=== PATIENT | male | born 2000 | race Caucasian/White ===

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

== ENCOUNTER 2020-12-26 15:49 | Emergency (ER) | payer SELFPAY ==
[~2020-12-26] VITALS: Ht 180.3 cm; Wt 94.8 kg
--- NOTE | 2020-12-26 16:30 | EKG ---
[address] [address] Test Date: 2020-12-26 Test Time: 15:57:45 Pat Name: SUSANA MILLER Department: Room: Gender: M [place] Superintendent: DEMETRIO : 2000 Requested By: KJ MYRICK Order Number: [id number] Reading MD: Chao Basilio Measurements Intervals [place] Rate: 100 P: 36 NM: 124 QRS: -2 QRSD: 78 T: 21 QT: 306 QTc: 397 Interpretive Statements SINUS RHYTHM LEFTWARD AXIS Electronically Signed On 01-01-2021 13:04:15 CDT by Chao Basilio
--- NOTE | 2020-12-26 16:31 | PHYS DOC ---
General Adult EDM: Chief Complaint: CHEST PAIN HPI: HPI: 20-year-old male presents with left-sided chest pain and left arm tingling. The patient states he has had problems a week in the left chest. It is gotten worse over the last few days. It is intermittent and he has not noticed a pattern. It is worse with deep breathing. For the last 2 days the chest pain has been constant but intensity increases and decreases. It is a 6 out of 10 pressure. When it is more intense he gets a tingling feeling in his arm and elbow. He denies fever or chills. He smokes 1 or 2 cigarettes every couple weeks. He denies drug use he has not smoked marijuana in a few weeks. Denies vaping or al cohol. No history of cardiac problems. (KJ MYRICK DO) Review of Systems: Review of Systems: Constitutional: Denies fever or chills Eyes: Denies change in visual acuity HENT: Denies nasal congestion or sore throat Respiratory: Denies cough or shortness of breath Cardiovascular: Denies chest pain or edema GI: Denies abdominal pain, nausea, vomiting, bloody stools or diarrhea : Denies dysuria Musculoskeletal: Denies back pain or joint pain Integument: Denies rash Neurologic: Denies headache, focal weakness or sensory changes Endocrine: Denies polyuria or polydipsia Lymphatic: Denies swollen glands Psychiatric: Denies depression or anxiety (KJ MYRICK DO) Physical Exam: PE: Constitutional: Well developed, well nourished, no acute distress, non-toxic appearance. [] HENT: Normocephalic, atraumatic, bilateral external ears normal, oropharynx moist, no oral exudates, nose normal. [] Eyes: PERRLA, EOMI, conjunctiva normal, no discharge. [] Neck: Normal range of motion, no tenderness, supple, no stridor. [] Cardiovascular:Heart rate regular rhythm, no murmur [] Lungs & Thorax: Bilateral breath sounds clear to auscultation [] Abdomen: Bowel sounds normal, soft, no tenderness, no masses, no pulsatile masses. [] Skin: Warm, dry, no erythema, no rash. [] Back: No tenderness, no CVA tenderness. [] Extremities: No tenderness, no cyanosis, no clubbing, ROM intact, no edema. [] Neurologic: Alert and oriented X 3, normal motor function, normal sensory function, no focal deficits noted. [] Psychologic: Affect normal, judgement normal, mood normal. [] (KJ MYRICK DO) Current Patient Data: Labs: Laboratory Tests Test 12/26/20 17:01 White Blood Count 8.3 x10^3/uL Red Blood Count 4.81 x10^6/uL Hemoglobin 13.8 g/dL Hematocrit 41.4 % Mean Corpuscular Volume 86 fL Mean Corpuscular Hemoglobin 29 pg Mean Corpuscular Hemoglobin Concent 33 g/dL Red Cell Distribution Width 13.4 % Platelet Count 205 x10^3/uL Neutrophils (%) (Auto) 64 % Lymphocytes (%) (Auto) 21 % Monocytes (%) (Auto) 12 % Eosinophils (%) (Auto) 2 % Basophils (%) (Auto) 1 % Neutrophils # (Auto) 5.4 x10^3uL Lymphocytes # (Auto) 1.7 x10^3/uL Monocytes # (Auto) 1.0 x10^3/uL Eosinophils # (Auto) 0.2 x10^3/uL Basophils # (Auto) 0.0 x10^3/uL Sodium Level 139 mmol/L Potassium Level 4.1 mmol/L Chloride Level 103 mmol/L Carbon Dioxide Level 30 mmol/L Anion Gap 6 Blood Urea Nitrogen 8 mg/dL Creatinine 1.0 mg/dL Estimated GFR (Cockcroft-Gault) 94.3 BUN/Creatinine Ratio 8 Glucose Level 85 mg/dL Calcium Level 9.2 mg/dL Total Bilirubin 0.3 mg/dL Aspartate Amino Transf (AST/SGOT) 18 U/L Alanine Aminotransferase (ALT/SGPT) 28 U/L Alkaline Phosphatase 124 U/L Troponin I Quantitative < 0.017 ng/mL Total Protein 6.6 g/dL Albumin 4.0 g/dL Albumin/Globulin Ratio 1.5 Vital Signs: Vital Signs Date Time Temp Pulse Resp B/P (MAP) Pulse Ox O2 Delivery O2 Flow Rate FiO2 12/26/20 16:23 98.5 98 17 130/79 (96) 99 Room Air Vital Signs Date Time Temp Pulse Resp B/P (MAP) Pulse Ox O2 Delivery O2 Flow Rate FiO2 12/26/20 16:23 98.5 98 17 130/79 (96) 99 Room Air (ROSARIO BYNUM DO) EKG: EKG: Sinus rhythm, rate 100, leftward axis, no ST elevation or depression. [] (KJ MYRICK DO) Radiology/Procedures: Radiology/Procedures: [] Impressions: XR CHEST 1V History: Chest pain Comparison: None. Technique: Portable AP radiograph of the chest. Findings: Low lung volumes. Possible left basilar opacities. No pleural effusion or pneumothorax. Cardiomediastinal silhouette and pulmonary vasculature are within normal limits. Osseous structures and soft tissues are unremarkable. Impression: 1. Low lung volumes with possible left basilar atelectasis. Electronically signed by: Wallace Castrejon MD (12/26/2020 4:56 PM) [id number] DICTATED AND SIGNED BY: WALLACE CASTREJON MD DATE: 12/26/201654 CC: KJ MYRICK DO; KALYAN GUTIÉRREZ PA ~MTH0 0 (KJ MYRICK DO) Radiology/Procedures: XR CHEST 1V History: Chest pain Comparison: None. Technique: Portable AP radiograph of the chest. Findings: Low lung volumes. Possible left basilar opacities. No pleural effusion or pneumothorax. Cardiomediastinal silhouette and pulmonary vasculature are within normal limits. Osseous structures and soft tissues are unremarkable. Impression: 1. Low lung volumes with possible left basilar atelectasis. Electronically signed by: Wallace Castrejon MD (12/26/2020 4:56 PM) [id number] (ROSARIO BYNUM DO) Heart Score: C/O Chest Pain: Yes HEART Score for Chest Pain: HEART Score for Chest Pain Response (Comments) Value History Slighlty/Non-Suspicious 0 ECG Normal 0 Age < 45 0 Risk Factors 1 or 2 Risk Factors 1 Troponin < Normal Limit 0 Total 1 Risk Factors: Risk Factors: DM, Current or recent (<one month) smoker, HTN, HLP, family history of CAD, obesity. Risk Scores: Score 0 - 3: 2.5% MACE over next 6 weeks - Discharge Home Score 4 - 6: 20.3% MACE over next 6 weeks - Admit for Clinical Observation Score 7 - 10: 72.7% MACE over next 6 weeks - Early Invasive Strategies (KJ MYRICK DO) C/O Chest Pain: Yes HEART Score for Chest Pain: HEART Score for Chest Pain Response (Comments) Value History Slighlty/Non-Suspicious 0 ECG Normal 0 Age < 45 0 Risk Factors No Risk Factors 0 Troponin < Normal Limit 0 Total 0 (ROSARIO BYNUM DO) Course & Med Decision Making: Course & Med Decision Making Pertinent Labs and Imaging studies reviewed. (See chart for details) The patient's EKG is unremarkable. His chest x-ray is negative for acute findings. Patient's labs urinalysis are pending. I am signing patient out to Dr. Bynum at 1800. [] (KJ MYRICK DO) Course & Med Decision Making ABCs unremarkable HPI, physical exam and comprehensive ER work-up nonconcerning for any emergent or surgical issues. I disclosed this might be an acute presentation of more concerning pathology but given week long symptoms, likely atypical chest pain PCP follow-up advised for further diagnostic work-up and intervention as indica mg. Strict return precautions discussed and understood by patient prior to departure (ROSARIO BYNUM DO) Dragon Disclaimer: Dragon Disclaimer: This electronic medical record was generated, in whole or in part, using a voice recognition dictation system. (KJ MYRICK DO) Departure Departure: Impression: Primary Impression: Chest pain, unspecified Disposition: 01 HOME / SELF CARE / HOMELESS Condition: STABLE Referrals: KALYAN GUTIÉRREZ (PCP) Additional Instructions: You were seen for chest pain. Your workup did not show any acute abnormalities today, but does not indicate that you do not have underlying cardiovascular disease. You do need to follow up with your primary doctor and potentially a commercial sales manager for further evaluation and treatment. You should return to the ED if you develop worsening chest pain, shortness of breath, fever, abnormal sweating, leg swelling, or any other new or concerning symptoms. KJ MYRICK DO Dec 26, 2020 16:31 ROSARIO BYNUM DO Dec 26, 2020 18:12
--- NOTE | 2020-12-26 16:58 | RAD ---
XR CHEST 1V History: Chest pain Comparison: None. Technique: Portable AP radiograph of the chest. Findings: Low lung volumes. Possible left basilar opacities. No pleural effusion or pneumothorax. Cardiomediast inal silhouette and pulmonary vasculature are within normal limits. Osseous structures and soft tissu es are unremarkable. Impression: 1. Low lung volumes with possible left basilar atelectasis. Electronically signed by: Wallace Baxter MD (12/26/2020 4:56 PM) [id number]
[2020-12-26 17:31] LABS: BASO % 1 % (0-3); EOS # 0.2 x10^3/uL (0.0-0.7); EOS % 2 % (0-3); HEMATOCRIT 41.4 % (39.0-53.0); HEMOGLOBIN 13.8 g/dL (13.0-17.5); LYMPH # 1.7 x10^3/uL (1.0-4.8); LYMPH % 21 % (24-48); MEAN CORPUSCULAR HEMOGLOBIN 29 pg (25-35); MEAN CORPUSCULAR HGB CONC 33 g/dL (31-37); MEAN CORPUSCULAR VOLUME 86 fL (79-100); MONO % 12 % (0-9); NEUT # 5.4 x10^3uL (1.8-7.7); NEUT % 64 % (31-73); PLATELET COUNT 205 x10^3/uL (140-400); RED BLOOD COUNT 4.81 x10^6/uL (4.30-5.70); RED CELL DISTRIBUTION WIDTH 13.4 % (11.5-14.5); WHITE BLOOD COUNT 8.3 x10^3/uL (4.0-11.0)
[2020-12-26 17:42] LABS: CALCIUM 9.2 mg/dL (8.5-10.1); GFR 94.3; POTASSIUM 4.1 mmol/L (3.5-5.1)
[2020-12-26 17:47] LABS: ALBUMIN/GLOBULIN RATIO 1.5 (1.0-1.7); TOTAL BILIRUBIN 0.3 mg/dL (0.2-1.0); TOTAL PROTEIN 6.6 g/dL (6.4-8.2)
[2020-12-26 18:26] VITALS: BP 131/70
== END 2020-12-26 18:42 | disposition home or self-care (01) ==
LOC: ER 15:49
DX: R07.89 Other chest pain (principal)
CPT/HCPCS: 36415; 71045; 80053; 84484; 85025; 93005; 99285-25